=== PATIENT | male | born 1975 | race Caucasian/White ===

== ENCOUNTER 2016-12-25 08:03 | Day surgery (SDC) | payer BC ==
[~2016-12-25 08:03] MED LIST: ACETAMINOPHEN 160 MG/5 ML BTL PO PRN; DEXAMETHASONE SOD PHOSPHATE 10 MG/ML VIAL IV PRN; MORPHINE SULFATE 2 MG/ML DISP.SYRIN IV PRN; MORPHINE SULFATE 4 MG/ML SYRG IV PRN; ONDANSETRON HCL/PF 2 MG/ML VIAL IV PRN; PROMETHAZINE HCL 10 MG in DEXTROSE 5 % IN WATER 50 ML IV PRN; PROMETHAZINE HCL 5 MG in DEXTROSE 5 % IN WATER 50 ML IV PRN; RINGER'S SOLUTION,LACTATED 1,000 ML IV PRN; oxyCODONE HCL 5 MG/5 ML UDC PO PRN
[2016-12-25] MEDS ORDERED: RINGER'S SOLUTION,LACTATED 1,000 ML IV ONE (08:36)
[2016-12-25] MEDS ORDERED: BUPIVACAINE HCL 50 ML VIAL IJ ONE (09:48)
[2016-12-25] MEDS ORDERED: SCOPOLAMINE HYDROBROMIDE 1.5 MG PATC TD ONE (11:20)
[2016-12-25 12:46] VITALS: BP 114/71
== END 2016-12-25 08:04 | disposition home or self-care (01) ==
LOC: AMB 08:03
PROVIDERS: ATTEND Allergy & Immunology
PROC: 0CTQXZZ Resection of Adenoids, External Approach (ICD-10-PCS; 2016-12-25)
PROC: 0CTPXZZ Resection of Tonsils, External Approach (ICD-10-PCS; principal; 2016-12-25 09:00)
DX: J35.01 Chronic tonsillitis (principal); J35.8 Other chronic diseases of tonsils and adenoids; Z68.23 Body mass index [BMI] 23.0-23.9, adult